=== PATIENT | female | born 1955 | race Caucasian/White ===

== ENCOUNTER 2021-05-02 03:58 | Inpatient (IN) | payer OTHER ==
[2021-05-02] VITALS (7 sets, daily range): BP systolic 99–127; BP diastolic 46–72
[~2021-05-02] VITALS: Ht 152.4 cm; Wt 91.4 kg
[2021-05-02 04:37] LABS: BE(vivo) -0.9 mmol/L (-2 to +3); HCO3 22.1 mmol/L (22.0-26.0); PCO2 31.4 mmHg (35.0-45.0); PO2 59.4 mmHg (80.0-100.0); pH 7.465 (7.360-7.450); sO2 92.5 % (92.0-98.0)
[2021-05-02 04:43] LABS: ABSOLUTE NEUTROPHILS 5.7 thou/uL (1.4-8.2); BASOPHILS 0.6 % (0.0-2.0); EOSINOPHILS 0.7 % (0.0-3.0); HEMATOCRIT 35.8 % (37.0-47.0); HEMOGLOBIN 11.9 gm/dL (12.0-15.0); LYMPHOCYTES 19.5 % (24.0-44.0); MCH 29.6 pg (26.0-34.0); MCHC 33.4 g/dL (28.0-37.0); MCV 88.7 fL (80.0-100.0); PLATELET COUNT 296 thou/uL (150-400); POLYS 69.2 % (36.0-66.0); RBC 4.03 mil/uL (4.20-5.00); RDW 15.1 % (10.5-14.5); WBC 8.3 thou/uL (4.0-11.0)
[2021-05-02 04:54] LABS: ANION GAP 10 mmol/L (7-16); BUN 11 mg/dL (7-18); CALCIUM 8.7 mg/dL (8.5-10.1); CHLORIDE 106 mmol/L (98-107); CO2 27 mmol/L (21-32); CREATININE 0.9 mg/dL (0.6-1.0); GLUCOSE 124 mg/dL (74-106); POTASSIUM 3.8 mmol/L (3.5-5.1); SODIUM 143 mmol/L (136-145)
[2021-05-02 05:05] LABS: DIRECT BILIRUBIN 0.2 mg/dL (<0.1-0.2); SGOT 21 U/L (15-37); SGPT 24 U/L (14-59); TOTAL BILIRUBIN 0.9 mg/dL (0.2-1.0); TOTAL PROTEIN 6.4 g/dL (6.4-8.2); TROPONIN-I <0.06 ng/mL (<0.06)
[2021-05-02 05:35] LABS: APTT 34.2 Seconds (24.5-32.8); INR 1.37; PROTIME 14.7 Seconds (10.5-12.1)
--- NOTE | 2021-05-02 07:31 | EKG ---
[address] [address] [place] [address] ELECTROCARDIOGRAM REPORT Name: LAM VENEGAS [id number] Admission: 05/02/21 Attend Phys: Discharge: Date of : 51 Report #: [id number] 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 subramanian : 1955 Requested By: Adina Baker Order Number: [id number] MD: David Beal Measurements Intervals [place] Rate: 53 P: 75 UT: 162 QRS: 67 QRSD: 103 T: 110 QT: 567 QTc: 533 Interpretive Statements Sinus rhythm Low voltage, precordial leads Nonspecific T abnrm, anterolateral leads Prolonged QT interval No previous ECG available for comparison Electronically Signed On 05-02-2021 7:31:42 CDT by David Beal [email or web address] <ELECTRONICALLY SIGNED> By: David Beal MD, [facility] 05/02/21 0731 0435 0435 David Beal MD, FACC /EPI
[2021-05-02 10:11] LABS: HCO3 24.6 mmol/L (22.0-26.0); PCO2 35.5 mmHg (35.0-45.0); PO2 114.8 mmHg (80.0-100.0); pH 7.458 (7.360-7.450); sO2 98.4 % (92.0-98.0)
[2021-05-02 11:34] LABS: CHOLESTEROL 162 mg/dL (<200); HDL CHOLESTEROL 45 mg/dL (>40); LDL CHOLESTEROL 91 mg/dL (<100); TC:HDL 3.6 Ratio (Not establshd); TRIGLYCERIDE 132 mg/dL (<150); VLDL 26 mg/dL (<40)
[2021-05-02] MEDS ORDERED: ENOXAPARIN100 MG/1 M (12:18)
[2021-05-02] MEDS ORDERED: FUROSEMIDE 20 M20 M1 PO (12:18)
[2021-05-02] MEDS ORDERED: TOPROL XL25 MG PO (12:18)
[2021-05-02] MEDS ORDERED: PACERONE 200 M200 M1 PO (12:19)
[2021-05-02] MEDS ORDERED: POTASSIUM CHLO10 ME1 PO (12:19)
[2021-05-02] MEDS ORDERED: TIZANIDINE HCL4 M2 PO (12:21)
[2021-05-02] MEDS ORDERED: DILTIAZEM 24HR180 M1 PO (12:22)
[2021-05-02] MEDS ORDERED: HYDROXYZINE HCL50 MG PO (12:22)
[2021-05-02] MEDS ORDERED: DULOXETINE HCL30 MG PO (12:22)
[2021-05-02] MEDS ORDERED: METOPROLOL SUCC25 M1 PO (12:23)
[2021-05-02] MEDS ORDERED: WARFARIN SODIUM1 MG PO (12:23)
[2021-05-02] MEDS ORDERED: LIPITOR 40 MG T40 M1 PO (12:24)
--- NOTE | 2021-05-02 14:45 | 2DMMODE ---
[facility] [place] [address] 2 D/M-MODE ECHOCARDIOGRAM Name: LILA VENEGAS Room #: 170-12 ADM IN M.R.#: [id number] Admission: 05/02/21 Attend Phys: Nilsa Lyle Discharge: Date of : 51 Report #: [id number] THIS REPORT FOR: cc: Isaac Sheffield Christopher A. DO Lundgren, Craig H. MD [facility] ~ APPROVED REPORT Study performed: 05/02/2021 13:44:27 EXAM: Comprehensive 2D, Doppler, and color-flow Echocardiogram Patient Location: ER Room #: 12 Status: routine BSA: 2.04 HR: 68 bpm BP: 115/52 mmHg Rhythm: NSR Other Information Study Quality: Good Indications COPD Atrial Fibrillation Dyspnea 2D Dimensions RVDd: 35.24 mm IVSd: 10.27 (7-11mm) LVOT Diam: 16.92 (18-24mm) LVDd: 55.51 mm PWd: 9.20 (7-11mm) Ascending Ao: 25.21 (22-36mm) LVDs: 35.84 (25-40mm) Left Atrium: 48.80 (27-40mm) Aortic Root: 31.35 mm IVC: 13.00 mm Volumes Left Atrial Volume (Systole) Single Plane 4CH: 79.06 mL Single Plane 2CH: 59.17 mL LA ESV Index: 37.00 mL/m2 Aortic Valve AoV Peak Maxwell.: 1.83 m/s AO Peak Gr.: 13.38 mmHg LVOT Max P.12 mmHg [facility] [address] [address] 2 D/M-MODE ECHOCARDIOGRAM Name: LILA VENEGAS Room #: 170-12 [facility]#: [id number] Admission: 05/02/21 Attend Phys: Nilsa Bowling Nov Discharge: Date of : 51 Report #: [id number] LVOT Max V: 1.13 m/s CASEY Vmax: 1.39 cm2 Mitral Valve MV Peak Gr.: 13.37 mmHg MV Mean Gr.: 4.86 mmHg E/A Ratio: 2.1 MV Decel. Time: 259.37 ms MV E Max Maxwell.: 1.65 m/s MV A Maxwell.: 0.78 m/s MV Max Maxwell.: 1.83 m/s MV Mean Maxwell.: 1.02 m/s MV VTI: 486.01 mm MV PHT: 75.22 ms MVA (PHT): 2.49 cm2 IVRT: 73.82 ms Pulmonary Valve PV Peak Maxwell.: 0.95 m/s PV Peak Gr.: 3.59 mmHg Pulmonary Vein P Vein S: 0.90 m/s P Vein A: 0.22 m/s P Vein D: 0.62 m/s P Vein A Dur.: 110.7 msec P Vein S/D Ratio: 1.45 Tricuspid Valve TR Peak Maxwell.: 2.86 m/s TR Peak Gr.: 32.62 mmHg PA Pressure: 38.00 mmHg Left Ventricle The left ventricle is normal size. There is normal LV segmental wall motion. There is normal left ventricular wall thickness. The left ventricular systolic function is normal. The left ventricular ejection fraction is within the normal range. LVEF 60%. The left ventricular diastolic function is abnormal. Right Ventricle The right ventricle is normal size. The right ventricular systolic function is normal. Atria Left atrium is dilated. Right atrium is dilated. Aortic Valve The aortic valve is sclerotic. Mild aortic regurgitation. There is no [place] [address] 2 D/M-MODE ECHOCARDIOGRAM Name: LILA VENEGAS Room #: 170-12 [facility] IN .R.#: [id number] Admission: 05/02/21 Attend Phys: Nilsa Baires Discharge: Date of : 51 Report #: [id number] Mitral Valve The mitral valve is normal in structure. Trace to mild mitral regurgitation. No evidence of mitral valve stenosis. Tricuspid Valve The tricuspid valve is normal in structure. There is mild tricuspid regurgitation. Estimated PAP 38 mmHg. There is mild pulmonary hypertension. Pulmonic Valve The pulmonary valve is normal in structure. Trace pulmonic regurgitation. Great Vessels The aortic root is normal in size. IVC is normal in size and collapses >50% with inspiration. Pericardium There is no pericardial effusion. <Conclusion> The left ventricular systolic function is normal. There is normal LV segmental wall motion. LVEF 60%. Both atria are dilated. The aortic valve is sclerotic. Mild aortic regurgitation, no stenosis. The mitral valve is normal in structure. Trace to mild mitral regurgitation. There is mild tricuspid regurgitation. Estimated pulmonary artery pressure of 38 mmHg. There is no pericardial effusion. <ELECTRONICALLY SIGNED> By: Archie Glass MD, [facility] 05/02/21 1444 1444 1444 Archie Glass MD, FACC /INF
[2021-05-02] MEDS ORDERED: CLOPIDOGREL75 MG PO (16:15)
[2021-05-02] MEDS ORDERED: PROTONIX40 M2 PO (16:17)
[2021-05-02] MEDS ORDERED: DIVALPROEX SOD250 M3 PO (16:20)
[2021-05-02] MEDS ORDERED: OMEGA 3-6-9 CO400 MG PO (16:24)
[2021-05-02] MEDS ORDERED: CALCIUM500 MG PO (16:25)
[2021-05-02] MEDS ORDERED: VITAMIN D3250 MCG PO (16:25)
[2021-05-03 00:23] VITALS: BP 123/64
[2021-05-03 03:45] LABS: ALBUMIN 2.9 g/dL (3.4-5.0); ANION GAP 8 mmol/L (7-16); BUN 20 mg/dL (7-18); CALCIUM 8.4 mg/dL (8.5-10.1); CHLORIDE 102 mmol/L (98-107); CO2 28 mmol/L (21-32); GLUCOSE 191 mg/dL (74-106); PHOSPHORUS 3.4 mg/dL (2.5-4.9); POTASSIUM 3.7 mmol/L (3.5-5.1); SODIUM 138 mmol/L (136-145); TROPONIN-I <0.06 ng/mL (<0.06)
--- NOTE | 2021-05-03 06:00 | NUR ---
Patient making slow progress towards outcome goals. Requires 10L hiflo to maintain adequate sautration. Vital signs and rhythm stable. Gait steady , up to BSC without difficulty. Slept well after Ambien.
[2021-05-03 07:32] VITALS: BP 135/62
[2021-05-03 11:59] VITALS: BP 114/55
--- NOTE | 2021-05-03 14:24 | NUR ---
INITIAL ASSESSMENT: Received consult. SW reviewed chart and spoke with nursing and attending physician. Pt was admitted from home due to dyspnea. Pt had negative COVID test on 05/02. Pt is on 10L of O2 and is on IV steroids. SW spoke with pt via phone. Introduced role of SW. Pt is alert/orientated x 4. Pt reports she normally lives at home in [place], [place]. She has been staying with her sister in [place] recently to be close to a hospital. Prior to admission, pt was indpendent with ADLs. Pt has a cane and walker to use as needed. Pt has home O2 in place through [employer]. Pt is normally on 4L continuously. Pt has used HH in the past, and would be agreeable to using HH at her sister's home in [place]. Pt's PCP is Dr. Isaac Sheffield in [place], [place]. No weekend discharge planned. SW is following to assist as needed with discharge planning.
[2021-05-03 15:33] VITALS: BP 137/81
[2021-05-03 19:48] VITALS: BP 135/80
[2021-05-04 04:06] LABS: CALCIUM 8.3 mg/dL (8.5-10.1); POTASSIUM 3.9 mmol/L (3.5-5.1)
[2021-05-04 04:29] VITALS: BP 139/72
--- NOTE | 2021-05-04 06:16 | NUR ---
ASSESSMENTS CHARTED, MEDS CHARTED GIVEN. PATIENT TRANSFERED FROM 3W AFTER COVID TESTS CAME BACK NEGATIVE. PATIENT RESTING IN BED DURING SHIFT. ALERT AND ORIENTED, SINUS RHYTHM ON TELEMETRY. ON 10 LITERS HIGH NEHEMIAH NASAL CANNULA. ACCU CHECK WITH COVERAGE NEEDED DUE TO STEROID USE. UP INDEPENDENTLY IN ROOM. FALL PRECAUTIONS IN PLACE DURING SHIFT. RECEIVING ANTIBIOTIC THERAPY.
[2021-05-04 07:59] VITALS: BP 145/79
[2021-05-04 11:48] VITALS: BP 138/85
--- NOTE | 2021-05-04 14:06 | NUR ---
PT ALERT AND ORIENTED TIMES FOUR. VSS, SR ON TELE. DENIES PAIN. PT SOA ON EXCERTION. PT UP AB FELISHA IN ROOM. PT TOLERATES MEDS AND SOME POTIONS OF HER MEALS. WILL CONTINUE TO MONITOR.
[2021-05-04 15:06] VITALS: BP 130/66
[2021-05-04 19:21] VITALS: BP 145/81
[2021-05-05 01:53] LABS: HEMATOCRIT 32.4 % (37.0-47.0); HEMOGLOBIN 10.8 gm/dL (12.0-15.0); MCH 29.6 pg (26.0-34.0); MCHC 33.2 g/dL (28.0-37.0); MCV 89.2 fL (80.0-100.0); RBC 3.63 mil/uL (4.20-5.00); RDW 15.2 % (10.5-14.5); WBC 12.1 thou/uL (4.0-11.0)
[2021-05-05 02:29] LABS: ALBUMIN 3.1 g/dL (3.4-5.0); CALCIUM 8.5 mg/dL (8.5-10.1); MAGNESIUM 2.1 mg/dL (1.8-2.4); POTASSIUM 4.4 mmol/L (3.5-5.1); TOTAL BILIRUBIN 0.7 mg/dL (0.2-1.0); TOTAL PROTEIN 6.1 g/dL (6.4-8.2)
--- NOTE | 2021-05-05 03:12 | NUR ---
ASSUMED CARE OF PT AT 2129. PT ALERT AND ORIENT TIMES THREE. FOLLOW COMMANDS. DENIES PAIN. REQUESTED AMBIEN. VSS, AFEBRILE. SR PER MONITOR. GOOD PROGRESS TOWARDS DC GOALS, WILL CONTINUE TO MONITOR.
[2021-05-05 04:05] VITALS: BP 152/81
--- NOTE | 2021-05-05 04:30 | HC ---
[facility] [address] CONSULTATION Name: LILA VENEGAS Room #: 207-P ADM IN M.R.#: [id number] Admission: 05/02/21 Attend Phys: Nilsa Lyle Discharge: Date of : 51 Report #: [id number] THIS REPORT FOR: cc: Isaac Sheffield Christopher A. DO Barry, Joseph W. MD ~ DATE OF SERVICE: 05/03/2021 INFECTIOUS DISEASE CONSULTATION ATTENDING PHYSICIAN: Dr. Lyle REASON FOR EVALUATION: Pneumonitis in the setting of acute on chronic respiratory failure. HISTORY OF PRESENT ILLNESS: Chart reviewed, patient examined. This is a 66 years old with underlying COPD, O2 requiring at 4 liters per nasal cannula at baseline, who does utilize a CPAP as well at night. She presented to the Emergency Room after having woken up, was found to have saturations in the low 80s, also was noted to have a recent cardioversion due to atrial fibrillation within the last 24-48 hours. Initial ABG showed a pH of 7.465, pCO2 of ____, pO2 of 59.4, FIO2 of 70% via BiPAP. BNP elevated at 1478. Baseline screening for coronavirus was negative as well as PCR. CT chest showed no evidence of pulmonary emboli, although did have diffuse interstitial opacities, question of atypical pneumonitis. Procalcitonin was less than 0.05. Due to concern about an infectious cause, in the absence of positive COVID test, she was empirically started on antibacterials with azithromycin and ceftriaxone. She is now requiring 10 liters per nasal cannula, although she states she feels better. She is able to speak without becoming quite dyspneic. Does have a nonproductive cough. It is not clear that she had any fevers, chills. Denies any significant GI related complaints. Otherwise, had diminished appetite in recent days. ALLERGIES: LISINOPRIL, MORPHINE. CURRENT MEDICATIONS: Include azithromycin, ceftriaxone, flecainide, diltiazem, duloxetine, metoprolol, furosemide, methylprednisolone, atorvastatin, ipratropium, albuterol inhaler, apixaban, zolpidem, p.r.n. analgesics and antiemetics. PAST MEDICAL HISTORY: As described above, severe COPD, O2 requiring; has known vasculopathy with coronary artery disease; cardiomyopathy with history of congestive heart failure; atrial fibrillation; previous stroke; obstructive sleep apnea requiring CPAP. SOCIAL HISTORY: Former smoker, quit a number of years ago. Occasional ethanol, [place] [address] CONSULTATION Name: LILA VENEGAS Room #: 207-P [facility] IN M.R.#: [id number] Admission: 05/02/21 Attend Phys: Nilsa Lyle Discharge: Date of : 51 Report #: [id number] FAMILY HISTORY: Noncontributory. REVIEW OF SYSTEMS: Otherwise, limited to the above. PHYSICAL EXAMINATION: GENERAL: She is alert, cooperative, mild to moderate distress. She is lucid, appears somewhat chronically ill, undernourished. VITAL SIGNS: Temperature 97.8, pulse 72, respirations 16, blood pressure 114/55, saturations 99%. SKIN: Warm, dry, no rashes. HEENT: Normocephalic. Extraocular muscles intact. Nasal cannula in place, 10 liters per minute. NECK: Supple. LUNGS: Overall diminished, few scattered crackles bilaterally. HEART: Irregular, do not appreciate a murmur. ABDOMEN: Soft, nontender. No peritoneal signs. GENITOURINARY: Deferred. RECTAL: Deferred. LABORATORY DATA: Blood cultures were sterile thus far. Chest x-ray from this morning, mild patchy infiltrates bilaterally. Borderline cardiomegaly. Electrolytes: Sodium 138, potassium 3.7, chloride 102, bicarbonate 28, anion gap of 8, BUN and creatinine 20 and 1.0, glucose of 191. Albumin 2.9. Echo, EF of 60%, trace mitral regurgitation, aortic regurgitation, dilated atria. TSH elevated at 4.375. Procalcitonin less than 0.05. Coronavirus testing was negative. ASSESSMENT AND PLAN: Pneumonitis in the setting of acute on chronic respiratory failure, O2 requiring chronic obstructive pulmonary disease. I think it is reasonable to continue empiric antimicrobial therapy. We will discontinue the azithromycin. We are concerned about drug interaction with the flecainide, seems less likely ____ illness, we will check mycoplasma studies. She remains quite tenuous. Continue to monitor expectantly. Wean off oxygen therapy as allowed. At this point, she seems to have responded to the initial approach. <ELECTRONICALLY SIGNED> By: Anthony Reddy MD 05/05/21 0430 1200 0013 Anthony Reddy MD /nt
--- NOTE | 2021-05-05 07:43 | NUR ---
PT PLACED ON BIPAP THIS MORNING 11/03 RATE 20 AND 65% FIO2.
[2021-05-05 07:58] VITALS: BP 141/72
[2021-05-05 08:40] LABS: BE(vivo) -1.7 mmol/L (-2 to +3); HCO3 21.6 mmol/L (22.0-26.0); PCO2 31.4 mmHg (35.0-45.0); PO2 78.9 mmHg (80.0-100.0); pH 7.455 (7.360-7.450); sO2 96.3 % (92.0-98.0)
[2021-05-05 11:25] VITALS: BP 145/79
[2021-05-05 15:54] VITALS: BP 132/71
[2021-05-05 19:57] VITALS: BP 123/52
[2021-05-06 03:00] LABS: ABSOLUTE NEUTROPHILS 7.6 thou/uL (1.4-8.2); BASOPHILS 0.1 % (0.0-2.0); HEMATOCRIT 29.2 % (37.0-47.0); HEMOGLOBIN 9.9 gm/dL (12.0-15.0); LYMPHOCYTES 5.5 % (24.0-44.0); MCH 30.1 pg (26.0-34.0); MCV 88.3 fL (80.0-100.0); MONOCYTES 5.9 % (1.0-8.0); PLATELET COUNT 239 thou/uL (150-400); POLYS 88.5 % (36.0-66.0); WBC 8.6 thou/uL (4.0-11.0)
[2021-05-06 03:12] LABS: CALCIUM 8.2 mg/dL (8.5-10.1); CREATININE 0.9 mg/dL (0.6-1.0); POTASSIUM 3.4 mmol/L (3.5-5.1)
[2021-05-06 05:41] VITALS: BP 151/63
[2021-05-06 07:52] VITALS: BP 129/90
--- NOTE | 2021-05-06 08:01 | NUR ---
PT SATS 92 TO 95% ON 12L/HFC THRU THE NOC, PLACED BACK ON BIPAP 60%FIO2 @ 0500, NO C/O PAIN THRU THE NOC, NPO EXCEPT MEDS, EXTERNAL CATHETER INTACK, VSS, REPOSITIONED NEEDED, REPORT GIVEN TO NEXT SHIFT TO CON'T PPOC.
--- NOTE | 2021-05-06 18:22 | NUR ---
PT ALERT AND ORIENTED TIMES FOUR. VSS. REMAINS ON BIPAP WITH SEVERAL TRAILS TODAY. PT DENEIS PAIN. PT TOLERATES MEDS. PT NPO AFTER MIDNIGHT FOR BRONCHOSCOPY TOMORROW. WILL CONTINUE TO MONITOR.
[2021-05-06 20:25] VITALS: BP 130/65
[2021-05-07] VITALS: BP 145/73
[2021-05-07 04:36] VITALS: BP 146/74
[2021-05-07 05:59] LABS: CALCIUM 8.1 mg/dL (8.5-10.1); CREATININE 0.9 mg/dL (0.6-1.0); POTASSIUM 3.1 mmol/L (3.5-5.1)
--- NOTE | 2021-05-07 06:30 | NUR ---
pt is alert and oreinted x4. pt wore bipap during the night lungs are diminished. npo for bronch. pt has a pure wick but voided on chux didnt catch urine. 2/2 pulses no edema noted. denies any complaints of pain noted will continue to assess and monitor per nursing
[2021-05-07 08:11] VITALS: BP 145/76
[2021-05-07 11:07] LABS: ANA INTERPRETATION Negative (Negative)
[2021-05-07 13:04] LABS: BF NUCLEATED CELLS 490 /mm3; BF RBC 31185 /mm3; CLARITY TURBID; COLOR RED; TOTAL VOLUME 28 mL
[2021-05-07 13:50] LABS: SOURCE RUL
[2021-05-07 13:52] LABS: BF MACROPHAGE 52 %; BF NEUTROPHILS 36 %
[2021-05-07 15:29] VITALS: BP 147/73
--- NOTE | 2021-05-07 16:54 | NUR ---
PATIENT PROGRESSING TOWARDS DISMISSAL GOALS. SCHEDULED BRONCH TODAY. PATIENT RETURNS VENTIMASK 50% TOLERATING WELL. DIET ORDERED FOR DINNER. VOIDING ADEQUATE. NO BM.
[2021-05-07 20:10] VITALS: BP 121/45
[2021-05-08 03:30] LABS: CALCIUM 7.8 mg/dL (8.5-10.1); POTASSIUM 3.7 mmol/L (3.5-5.1)
[2021-05-08 04:49] VITALS: BP 137/73
[2021-05-08 07:41] VITALS: BP 125/62
[2021-05-08 11:31] VITALS: BP 115/49
[2021-05-08 15:28] VITALS: BP 130/72
--- NOTE | 2021-05-08 17:11 | NUR ---
ASSUMED CARE SHIFT CHANGE. VSS. DENIES PAIN. O2 SATS WNL 5-8L O2. PT CURRENTLY ON 5L SATS 93%. SOB WITH ACTIVITY. UOP ADEQUATE, DIURESING APPROPRIATELY. PT PROGRESSING TOWARD GOALS. DENIES NEEDS CURRENTLY. CONT POC. WILL PASS ON REPORT TO TAWNY JENKINS.
[2021-05-08 19:21] VITALS: BP 144/71
[2021-05-08 23:39] VITALS: BP 143/82
[2021-05-09 05:44] VITALS: BP 136/73
--- NOTE | 2021-05-09 06:13 | NUR ---
PATIENTS CARE WAS ASSUMED AT SHIFT CHANGE. PATIENT WAS ASSESSED AND MED WERE WAS. PATIENT CONTINUES TO PROGRESS TOWARDS DISCHARGE. ROUNDS WERE MADE, VS ARE STABLE. NURSING TO CONTINUE TO MONITOR. THE BED ALARM IS ON. THE BED IS IN A LOW AND LOCKED POSITION.
[2021-05-09 07:16] VITALS: BP 139/68
[2021-05-09 11:09] VITALS: BP 112/58
--- NOTE | 2021-05-09 13:08 | PATH ---
[facility] [address] [place] [address] PATHOLOGY RPT PROCEDURE Name: LILA VENEGAS Room #: 207-P ADM IN M.R.#: [id number] Admission: 05/02/21 Date of : 51 Discharge: Report #: [id number] Path Case #: [id number] Note [facility] Accession Number: [id number] TESTS RESULT FLAG UNITS REF RANGE LAB Clinician Provided Cytology Information No. of containers..01 Other (Miscellaneous) Source: RUL BAL DIAGNOSIS: 02 RUL BAL NEGATIVE FOR MALIGNANT EPITHELIAL CELLS. NORMAL BRONCHIAL CELLS ARE PRESENT. PULMONARY MACROPHAGES PRESENT, INDICATIVE OF LOWER RESPIRATORY TRACT SAMPLING. SCANT CELLULARITY. Pathologist ICD10: 02 R06.02 Signed out by: 02 Caitie Espino MD, Pathologist NPI- [id number] Performed by: 01 Julieta Morales Screen Making Supervisor ([facility]) Gross description: 01 25ML, CLOUDY RED, 1 TP /LCS 05/08/2021 0002 Local FLAG LEGEND: L-Low Normal,H-High Normal,LL-Alert Low,HH-Alert High <-Panic Low,>-Panic High,A-Abnormal,AA-Critical Abnormal Performed at: [address] [place] [address] Garcia Caputo MD, [address] [address] Caitie Espino MD, Specimen Comment: A courtesy copy of this report has been sent to [phone], [phone] Specimen Comment: [phone], , Specimen Comment: Report sent to DR. GOEL, DR ROPER / DR FREEMAN Performed at: [address], [place], [place] [address] MD Garcia Caputo MD Phone: [phone]
[2021-05-09 15:04] VITALS: BP 131/55
--- NOTE | 2021-05-09 18:07 | NUR ---
Pt has had worsening respiratory issues the past few days with worsening cxr, on bipap, bronch and Cultures are pending. She was evaluated by therapy and they are recommending [facility] at [place]. She is staying with her sister in [place] and has home o2 in place. Ada huddleston notified of possible referral.
[2021-05-09 19:56] VITALS: BP 139/83
[2021-05-10 02:59] LABS: HEMATOCRIT 32.8 % (37.0-47.0); HEMOGLOBIN 10.9 gm/dL (12.0-15.0); MCH 29.7 pg (26.0-34.0); MCHC 33.4 g/dL (28.0-37.0); MCV 88.9 fL (80.0-100.0); RBC 3.69 mil/uL (4.20-5.00); WBC 9.7 thou/uL (4.0-11.0)
[2021-05-10 03:14] LABS: ALBUMIN 2.7 g/dL (3.4-5.0); CALCIUM 8.2 mg/dL (8.5-10.1); CREATININE 0.9 mg/dL (0.6-1.0); MAGNESIUM 2.5 mg/dL (1.8-2.4); PHOSPHORUS 3.7 mg/dL (2.5-4.9); POTASSIUM 4.2 mmol/L (3.5-5.1)
[2021-05-10 03:20] VITALS: BP 147/70
--- NOTE | 2021-05-10 05:12 | NUR ---
PT IS PLEASANT ALERT AND OREINTED X4. LUNGS CLEAR TO DIMINISHED. ON BIPAP AT 40 PERCENT. COMPLAINTS OF HEADACHE TYLENOL GIVEN AND THEN PT FELL ASLEEP AMBIEN WAS GIVEN FOR SLEEP. RESTING. ABDOMEN IS ROUND BOWEL SOUNDS HYPOACTIVE X4. ANTIBITOIC TREATMENT GIVEN. ONGOING NURSING CARE. CALL LIGHT WITHIN REACH IF NEEDS NURSING ASSISTANCE FROM STAFF.
[2021-05-10 08:28] VITALS: BP 124/56
[2021-05-10 12:05] VITALS: BP 130/60
--- NOTE | 2021-05-10 14:46 | NUR ---
rehab consult requested today in LOS. pt may be medically stable for dc on Thu or Thursday.
--- NOTE | 2021-05-10 17:58 | NUR ---
ASSESSMENT CHARTED - MEDS PER NOV - PT UP TO THE BATHROOM WITH MIN/ STBY ASSIST - GIVEN MIRLAX THIS AM FOR NO BM - PT STATED SHE DID HAVE A SMALL BM. SAPNA DIET AND FLUIDS. NO CO'S OF NASUEA. GIVEN TYLENOL FOR CO'S OF HEADACH WITH GOOD RELIEF PATIENT STATES. IV AB'S CHANGED TO PO THIS SHIFT. SEEN BY PHYS AND OCC THERAPY. NO CO'S AT THE PRESENT TIME.
[2021-05-10 19:50] VITALS: BP 155/78
[2021-05-11 03:08] LABS: HEMATOCRIT 30.7 % (37.0-47.0); HEMOGLOBIN 10.3 gm/dL (12.0-15.0); MCHC 33.7 g/dL (28.0-37.0); RBC 3.45 mil/uL (4.20-5.00); RDW 15.1 % (10.5-14.5); WBC 9.6 thou/uL (4.0-11.0)
[2021-05-11 03:23] LABS: ALBUMIN 2.4 g/dL (3.4-5.0); CALCIUM 7.9 mg/dL (8.5-10.1); PHOSPHORUS 4.6 mg/dL (2.5-4.9); POTASSIUM 4.5 mmol/L (3.5-5.1)
[2021-05-11 03:35] VITALS: BP 156/77
[2021-05-11 07:30] VITALS: BP 128/63
--- NOTE | 2021-05-11 08:16 | NUR ---
ASSUMED CARE OF PT AT 1900, PT A/OX4 ON 2LNC. PT C/O HEADACHE 02/04 MEDICATION GIVEN. PT TOLERATED BIPAP WELL THIS NOC. REMAINED IN SINUS MARGO DURING SLEEP. WILL CONTINUE TO WORK TOWARDS PT'S POC.
[2021-05-11] MEDS ORDERED: LEVOFLOXACIN500 MG PO (08:32)
[2021-05-11] MEDS ORDERED: ELIQUIS5 MG PO (08:33)
[2021-05-11] MEDS ORDERED: TAMBOCOR 100 M100 M1 PO (08:34)
[2021-05-11] MEDS ORDERED: PREDNISONE 20 M20 M1 PO (08:35)
[2021-05-11 12:10] VITALS: BP 122/59
[2021-05-11 13:02] VITALS: BP 122/59
--- NOTE | 2021-05-11 13:25 | NUR ---
FAXED HOME HEALTH REFERRAL TO [facility] IN [place], [place]. SPOKE TO TO CONFIRM THEY SERVICE [place], [place] AND [place]. SHE'LL REVIEW AND CONFIRM IF THEY CAN PROVIDE SERVICES TODAY, 05/11/21. [facility] P [phone]; FAX [phone]; M [phone]
[2021-05-11 13:59] VITALS: BP 122/59
--- NOTE | 2021-05-11 15:32 | NUR ---
PT IS AXOX4, PLEASANT; DENIES PAIN; VSS, AFEBRILE, SB ON MONITOR. PT RESTING COMFORTABLY, NEEDS STDBY ASST TO TOILET. DR FREEMAN CONSULTED, DR DRAPER CONSULTED, DR GOEL CONSULTED. PT TO D/C HOME WITH HOME HEALTH FOR PT. DISCHARGE EDUCATION CONDUCTED. PT COMMUNICATED UNDERSTANDING OF MEDS AND FOLLOW UP APPT. DISCHARGED HOME WITH [facility]IE[facility] VIA PERSONAL VEHICLE. NO CONCERNS AT THIS TIME.
--- NOTE | 2021-05-13 15:05 | HC ---
[facility] [place] [address] [place] [address] CONSULTATION Name: LILA VENEGAS Room #: 207-P [facility] IN M.R.#: [id number] Admission: 05/02/21 Attend Phys: Nilsa Bowling Valdo Discharge: 05/11/21 Date of : 51 Report #: [id number] THIS REPORT FOR: cc: Isaac Sheffield Christopher A. DO Smithson, David G. MD ~ DATE OF SERVICE: 05/10/2021 HISTORY OF PRESENT ILLNESS: The patient is a 66-year-old white female, admitted with shortness of breath. Has prior history of COPD, obstructive sleep apnea and underwent a cardioversion for atrial fibrillation 05/01/2021 at [facility]. Upon admission here to [facility] on 05/02/2021, she was noted to have acute respiratory failure, bilateral pneumonia, aspiration pneumonia, cardiomyopathy with CHF. She underwent bronchoscopy 05/07/2021. She is improving and doing much better. We are seeing her in rehabilitation medicine consultation. She has a history of the prior electrical conversion for atrial fibrillation on 05/01/2021 per chart notes. History of obesity. MEDICATIONS: Please see the full medication listing. ALLERGIES: LISINOPRIL AND MORPHINE. SOCIAL HISTORY: Lives in a mobile home with spouse near the [facility]. She has been staying with her sister here in the [place] area. She has been utilizing a cane. She has been on 4 liters nasal prong O2 at home. No stairs. Sister is retired and could be of assistance. is currently down in [place] with their dog. REVIEW OF SYSTEMS: No current complaints of chest pain, shortness of breath or abdominal discomfort. PHYSICAL EXAMINATION: GENERAL: A 66-year-old white female, in no obvious distress. She is alert, pleasant. VITAL SIGNS: Last recorded temperature 97, pulse 56, respirations 20, blood pressure 130/60. HEENT: Appeared to be benign. Nasal prong O2 is in place. She is currently on 3 liters. She appears to be a good historian. NEUROLOGIC: Functional range of motion of both upper and lower extremities, strength appears to be grade 4/5. DTRs are trace to 1. She was min assist coming to stand and ambulate 150 feet, min assist with front wheeled walker. She was able to brush her teeth and put on deodorant without any loss of balance. She ambulated around the obstacles in room without difficulty. ASSESSMENT: A 66-year-old white female with the following problem list: 1. Acute respiratory failure with bilateral pneumonia, improved. [address] [address] CONSULTATION Name: LILA VENEGAS Room #: 207-P [facility] IN M.R.#: [id number] Admission: 05/02/21 Attend Phys: Nilsa Lyle Discharge: 05/11/21 Date of : 51 Report #: [id number] 2. Aspiration pneumonia. 3. Cardiomyopathy with congestive heart failure. 4. Obstructive sleep apnea. 5. Status post prior electrical cardioversion for atrial fibrillation. 6. Obesity. PLAN: She is doing very well functionally with ambulation including up in the room, going around obstacles, ADLs. She is utilizing a walker. She is hoping to return back home tomorrow and is feeling better. She appears quite alert and appropriate. I would anticipate that she could be ready for discharge and felt to be medically cleared. I do not see that she would warrant an acute inpatient rehabilitation stay, but would anticipate she could go directly home potentially with some home health care or as indicated per the other physicians. Thank you for asking us to assist in this patient's care. <ELECTRONICALLY SIGNED> By: Sandeep Arambula MD 05/13/21 1505 1323 2343 Sandeep Arambula MD /nt
== END 2021-05-11 15:35 | disposition home health service (06) | DRG 177 ==
LOC: ER 03:58 → 3W 10:32 → EROBS 10:32 → 2N 12:28 → EROBS 12:40 → 3W 16:03 → 2N 05-03 18:01
PROVIDERS: Emergency Medicine; Internal Medicine; Internal Medicine Pulmonary Disease; Pediatrics; ADMIT Hospitalist; ATTEND Hospitalist
PROC: 5A09357 Assistance with Respiratory Ventilation, Less than 24 Consecutive Hours, Continuous Positive Airway Pressure (ICD-10-PCS; principal; 2021-05-02)
PROC: 5A0945A Assistance with Respiratory Ventilation, 24-96 Consecutive Hours, High Flow/Velocity Cannula (ICD-10-PCS; principal; 2021-05-02)
PROC: 5A09357 Assistance with Respiratory Ventilation, Less than 24 Consecutive Hours, Continuous Positive Airway Pressure (ICD-10-PCS; 2021-05-05)
PROC: 5A0935A Assistance with Respiratory Ventilation, Less than 24 Consecutive Hours, High Flow/Velocity Cannula (ICD-10-PCS; 2021-05-06)
PROC: 5A09357 Assistance with Respiratory Ventilation, Less than 24 Consecutive Hours, Continuous Positive Airway Pressure (ICD-10-PCS; 2021-05-06)
PROC: 0B9C8ZX Drainage of Right Upper Lung Lobe, Via Natural or Artificial Opening Endoscopic, Diagnostic (ICD-10-PCS; 2021-05-07)
PROC: 5A09357 Assistance with Respiratory Ventilation, Less than 24 Consecutive Hours, Continuous Positive Airway Pressure (ICD-10-PCS; 2021-05-07)
PROC: 5A0935A Assistance with Respiratory Ventilation, Less than 24 Consecutive Hours, High Flow/Velocity Cannula (ICD-10-PCS; 2021-05-07)
PROC: 5A0935A Assistance with Respiratory Ventilation, Less than 24 Consecutive Hours, High Flow/Velocity Cannula (ICD-10-PCS; 2021-05-08)
PROC: 5A09357 Assistance with Respiratory Ventilation, Less than 24 Consecutive Hours, Continuous Positive Airway Pressure (ICD-10-PCS; 2021-05-08)
PROC: 5A09357 Assistance with Respiratory Ventilation, Less than 24 Consecutive Hours, Continuous Positive Airway Pressure (ICD-10-PCS; 2021-05-09)
PROC: 5A09357 Assistance with Respiratory Ventilation, Less than 24 Consecutive Hours, Continuous Positive Airway Pressure (ICD-10-PCS; 2021-05-10)
PROC: 5A09357 Assistance with Respiratory Ventilation, Less than 24 Consecutive Hours, Continuous Positive Airway Pressure (ICD-10-PCS; 2021-05-11)
DX: J69.0 Pneumonitis due to inhalation of food and vomit (principal); E43 Unspecified severe protein-calorie malnutrition; J96.21 Acute and chronic respiratory failure with hypoxia; I42.9 Cardiomyopathy, unspecified; D68.59 Other primary thrombophilia; I50.32 Chronic diastolic (congestive) heart failure; J44.9 Chronic obstructive pulmonary disease, unspecified; G47.33 Obstructive sleep apnea (adult) (pediatric); E66.9 Obesity, unspecified; I25.10 Atherosclerotic heart disease of native coronary artery without angina pectoris; I48.91 Unspecified atrial fibrillation; E78.5 Hyperlipidemia, unspecified; G43.909 Migraine, unspecified, not intractable, without status migrainosus; G89.29 Other chronic pain; I11.0 Hypertensive heart disease with heart failure; M54.9 Dorsalgia, unspecified; F32.9 Major depressive disorder, single episode, unspecified; E11.9 Type 2 diabetes mellitus without complications; M19.90 Unspecified osteoarthritis, unspecified site; K21.9 Gastro-esophageal reflux disease without esophagitis; Z20.822 Contact with and (suspected) exposure to COVID-19; Z87.891 Personal history of nicotine dependence; Z88.6 Allergy status to analgesic agent; Z79.899 Other long term (current) drug therapy; Z79.01 Long term (current) use of anticoagulants; Z88.8 Allergy status to other drugs, medicaments and biological substances; Z68.39 Body mass index [BMI] 39.0-39.9, adult; Z86.73 Personal history of transient ischemic attack (TIA), and cerebral infarction without residual deficits; I25.2 Old myocardial infarction; Z99.81 Dependence on supplemental oxygen
CPT/HCPCS: 10081; 10879; 50010; 62110; 62900; 70005

== ENCOUNTER → 2021-05-29 | Outpatient (CLI) | payer OTHER ==
[~2021-05-29] MED LIST: CALCIUM500 MG PO; CLOPIDOGREL75 MG PO; DILTIAZEM 24HR180 M1 PO; DIVALPROEX SOD250 M3 PO; DULOXETINE HCL30 MG PO; ELIQUIS5 MG PO; ENOXAPARIN100 MG/1 M; FUROSEMIDE 20 M20 M1 PO; HYDROXYZINE HCL50 MG PO; LEVOFLOXACIN500 MG PO; LIPITOR 40 MG T40 M1 PO; METOPROLOL SUCC25 M1 PO; OMEGA 3-6-9 CO400 MG PO; PACERONE 200 M200 M1 PO; POTASSIUM CHLO10 ME1 PO; PREDNISONE 20 M20 M1 PO; PROTONIX40 M2 PO; TAMBOCOR 100 M100 M1 PO; TIZANIDINE HCL4 M2 PO; TOPROL XL25 MG PO; VITAMIN D3250 MCG PO; WARFARIN SODIUM1 MG PO
== END ==
LOC: RAD 13:23
PROVIDERS: ATTEND Internal Medicine Pulmonary Disease
DX: R06.02 Shortness of breath (principal); K44.9 Diaphragmatic hernia without obstruction or gangrene; M41.84 Other forms of scoliosis, thoracic region

== ENCOUNTER → 2021-06-12 | Outpatient (CLI) | payer OTHER | LOC: SJCVC 10:38 | PROVIDERS: ATTEND Internal Medicine | DX: R94.31 Abnormal electrocardiogram [ECG] [EKG] (principal); I44.0 Atrioventricular block, first degree; I48.0 Paroxysmal atrial fibrillation; I10 Essential (primary) hypertension; E78.5 Hyperlipidemia, unspecified; J96.11 Chronic respiratory failure with hypoxia; J44.9 Chronic obstructive pulmonary disease, unspecified; E11.9 Type 2 diabetes mellitus without complications; G47.33 Obstructive sleep apnea (adult) (pediatric); Z79.899 Other long term (current) drug therapy; Z88.8 Allergy status to other drugs, medicaments and biological substances; Z88.5 Allergy status to narcotic agent; Z87.891 Personal history of nicotine dependence ==

== ENCOUNTER → 2021-07-12 | Outpatient (CLI) | payer OTHER ==
[~2021-07-12] MED LIST changes: +BAYER CHEWABLE81 MG PO; +CALCIUM CITRAT1 EAC7 PO; +CARDIZEM CD 18180 M3 PO; +CEFDINIR300 MG PO; +CYMBALTA30 MG PO; +DEMADEX20 MG PO; +DOXYCYCLINE HYC50 MG PO; +LIPITOR40 MG PO; +MUCINEX600 MG PO; +PULMICORT0.5 MG/21 INH; +SPIRONOLACTONE25 M1 PO; +TORSEMIDE20 MG PO; +VITAMIN D3 COM1 EACH PO; +WOMEN'S DAILY1 EACH PO; +XARELTO20 MG PO
== END ==
LOC: BC 06-26 12:18 → CAT 10:27 → BC 14:13
PROVIDERS: ATTEND Family Medicine
DX: Z12.31 Encounter for screening mammogram for malignant neoplasm of breast (principal)

== ENCOUNTER 2021-07-19 01:55 | Inpatient (IN) | payer OTHER ==
[2021-07-19] VITALS (10 sets, daily range): BP systolic 133–188; BP diastolic 39–86
[~2021-07-19] VITALS: Ht 152.4 cm; Wt 81.2 kg
[~2021-07-19 01:55] MED LIST changes: -BAYER CHEWABLE81 MG PO; -CALCIUM CITRAT1 EAC7 PO; -CARDIZEM CD 18180 M3 PO; -CEFDINIR300 MG PO; -CYMBALTA30 MG PO; -DEMADEX20 MG PO; -DOXYCYCLINE HYC50 MG PO; -LIPITOR40 MG PO; -MUCINEX600 MG PO; -PULMICORT0.5 MG/21 INH; -SPIRONOLACTONE25 M1 PO; -TORSEMIDE20 MG PO; -VITAMIN D3 COM1 EACH PO; -WOMEN'S DAILY1 EACH PO; -XARELTO20 MG PO
[2021-07-19 02:41] LABS: HEMOGLOBIN 6.8 gm/dL (12.0-15.0); RDW 18.4 % (10.5-14.5); WBC 11.6 thou/uL (4.0-11.0)
[2021-07-19 02:43] LABS: ABSOLUTE NEUTROPHILS 9.6 thou/uL (1.4-8.2); BASOPHILS 0.6 % (0.0-2.0); EOSINOPHILS 0.3 % (0.0-3.0); HEMATOCRIT 22.3 % (37.0-47.0); LYMPHOCYTES 11.2 % (24.0-44.0); MCH 22.5 pg (26.0-34.0); MCHC 30.3 g/dL (28.0-37.0); MCV 74.2 fL (80.0-100.0); MONOCYTES 5.2 % (1.0-8.0); PLATELET COUNT 394 thou/uL (150-400); POLYS 82.7 % (36.0-66.0); RBC 3.01 mil/uL (4.20-5.00)
[2021-07-19] MEDS ORDERED: TORSEMIDE20 MG PO (02:45)
[2021-07-19] MEDS ORDERED: XARELTO20 MG PO (02:46)
[2021-07-19] MEDS ORDERED: WOMEN'S DAILY1 EACH PO (02:47)
[2021-07-19] MEDS ORDERED: VITAMIN D3 COM1 EACH PO (02:47)
[2021-07-19] MEDS ORDERED: CALCIUM CITRAT1 EAC7 PO (02:48)
[2021-07-19 03:01] LABS: CALCIUM 8.7 mg/dL (8.5-10.1); CREATININE 1.2 mg/dL (0.6-1.0)
[2021-07-19 03:21] LABS: POTASSIUM 2.7 mmol/L (3.5-5.1)
--- NOTE | 2021-07-19 07:22 | EKG ---
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 : 1955 Requested By: Max Laughlin Order Number: [id number] MD: David Beal Measurements Intervals [place] Rate: 78 P: 0 ND: 132 QRS: 49 QRSD: 154 T: 72 QT: 563 QTc: 642 Interpretive Statements Sinus rhythm Left bundle branch block Compared to ECG 05/02/2021 04:35:53 Left bundle-branch block now present Prolonged QT interval no longer present Electronically Signed On 07-19-2021 7:22:34 CDT by David Beal [email or web address] <ELECTRONICALLY SIGNED> By: David Beal MD, [facility] 07/19/21721 5 5 David Beal MD, FAC /EPI
--- NOTE | 2021-07-19 09:55 | EKG ---
[address] [address] ELECTROCARDIOGRAM REPORT Name: FEMI VENEGASMUNIR Fleming Room #: 439- ADM IN M.R.#: [id number] Admission: 07/19/21 Attend Phys: Kalin Lorenzo MD Discharge: Date of : 51 Report #: [id number] [facility] Test Date: 2021-07-19 Test Time: 09:15:52 Pat Name: LILA VENEGAS Department: Room: 439 Gender: F Audio Visual Production Specialist: JAY : 1955 Requested By: Toney Frank Order Number: [id number] MD: David Beal Measurements Intervals [place] Rate: 79 P: 140 [place]: 172 QRS: 59 QRSD: 170 T: -61 QT: 469 QTc: 538 Interpretive Statements Sinus Probable left atrial enlargement LBBB Compared to ECG 07/19/2021 03:16:20 LBBB, no change Electronically Signed On 07-19-2021 9:55:42 CDT by David Beal [email or web address] <ELECTRONICALLY SIGNED> By: David Beal MD, [facility] [id number] 4 4 David Beal MD, FAC /EPI
[2021-07-19 10:29] LABS: BE(vivo) -5.2 mmol/L (-2 to +3); PCO2 27.4 mmHg (35.0-45.0); PO2 57.6 mmHg (80.0-100.0); pH 7.435 (7.360-7.450); sO2 91.4 % (92.0-98.0)
--- NOTE | 2021-07-19 11:10 | NUR ---
Pt. became SOA & O2 sats dropped-LAW OFFICE MANAGER activated-see flowsheet
--- NOTE | 2021-07-19 15:02 | 2DMMODE ---
[facility] [place] [address] 2 D/M-MODE ECHOCARDIOGRAM Name: LILA VENEGAS Room #: 352-P ADM IN M.R.#: [id number] Admission: 07/19/21 Attend Phys: Toney Frank MD Discharge: Date of : 51 Report #: [id number] THIS REPORT FOR: cc: Isaac Sheffield Christopher A. DO Santiago, Patrick MD [facility] ~ APPROVED REPORT Study performed: 07/19/2021 12:25:23 EXAM: Limited 2D, Doppler, and color-flow Echocardiogram Patient Location: Bedside Room #: [facility] Status: routine BSA: 1.79 HR: 80 bpm BP: 178/75 mmHg Rhythm: LBBB Other Information Study Quality: Good Indications Limited echo for abnormal EKG, anemia, hypokalemia. Hx: MD's, Afib/CV, COPD, CVA. (Complete echo done 01/30/21). 2D Dimensions IVSd: 9.57 (7-11mm) LVDd: 58.05 mm PWd: 9.16 (7-11mm) LVDs: 45.65 (25-40mm) Left Atrium: 51.03 (27-40mm) Aortic Valve AoV Peak Maxwell.: 1.67 m/s AO Peak Gr.: 11.14 mmHg Tricuspid Valve TR Peak Maxwell.: 3.84 m/s RAP Estimate: 15.00 mmHg TR Peak Gr.: 59.00 mmHg PA Pressure: 74.00 mmHg Left Ventricle Left ventricle is at the upper limits of normal. Regional wall motion [facility] [address] [place] [address] 2 D/M-MODE ECHOCARDIOGRAM Name: LILA VENEGAS Room #: 352-P [facility].#: [id number] Admission: 07/19/21 Attend Phys: Diony Don Discharge: Date of : 51 Report #: [id number] abnormalities are noted. There is normal left ventricular wall thickness. Left ventricular systolic function is mild to moderately decreased. LVEF is 40-45%. Right Ventricle The right ventricle is normal size. The right ventricular systolic function is normal. Atria Left atrium is moderately dilated. Right atrium is mildly dilated. Aortic Valve The aortic valve is normal in structure. Mild aortic regurgitation. There is no aortic valvular stenosis. Mitral Valve The mitral valve is normal in structure. Moderate mitral regurgitation. Tricuspid Valve The tricuspid valve is normal in structure. Moderate tricuspid regurgitation. Estiamted PAP is 70-75mmHg. Severe pulmonary hypertension. Great Vessels The aortic root is normal in size. IVC is dilated and collapses <50% with inspiration. Pericardium There is no pericardial effusion. Bilateral pleural effusions noted. <Conclusion> Left ventricle size in the upper limits of normal Normal wall thickness Ejection fraction 40-45% with moderate anteroseptal hypokinesis Normal right ventricle size/function Left atrium moderately dilated right atrium mildly dilated Mild aortic valve insufficiency Mildmoderate mitral valve insufficiency/posteriorly directed Moderate tricuspid valve insufficiency Severe pulmonary hypertension PA pressure systolic estimated 70 mmHg [facility] [address] [place] [address] 2 D/M-MODE ECHOCARDIOGRAM Name: LILA VENEGAS Room #: 352-P [facility] IN [facility]#: [id number] Admission: 07/19/21 Attend Phys: Diony Don Discharge: Date of : 51 Report #: [id number] No pericardial effusion Normal aortic root size Pleural effusion noted <ELECTRONICALLY SIGNED> By: David Beal MD, FACC 07/19/21 1502 01 01 David Beal MD, FACC /INF
[2021-07-19 15:14] LABS: HEMATOCRIT 26.8 % (37.0-47.0); HEMOGLOBIN 8.3 gm/dL (12.0-15.0)
[2021-07-19 15:22] LABS: CALCIUM 8.8 mg/dL (8.5-10.1); MAGNESIUM 3.2 mg/dL (1.8-2.4)
[2021-07-19 15:22] LABS: % SATURATION 8 % (20-39); IRON 37 ug/dL (50-170); TIBC 454 ug/dL (250-450)
[2021-07-19 15:24] LABS: POTASSIUM 4.1 mmol/L (3.5-5.1)
[2021-07-19 16:03] LABS: FERRITIN 101 ng/mL (8-252)
--- NOTE | 2021-07-19 17:27 | NUR ---
PT WAS TRANSFER FROM 4S DUE TO SOB AND INCREASE NEED FPR OXYGEN. ALERT AND ORIENTED X4. CURRENTLY ON AN OPTIFLOW, 40L, 45%. SOB WITH EXERTION. COVID TEST CAME BACK NEGATIVE, NEED CLEARANCE FROM ID NURSE. UP TO BSC INDEPEDENTLY. GI ROUNDING AND GAVE ORDERS FOR PT TO BE ON A DIET. DENIES ANY NEEDS CARLA. WILL CONTINUE TO MONITOR
--- NOTE | 2021-07-19 19:13 | NUR ---
[age] YEAR OLD FEMALE ADMITED TO [address] [place] [address] 439 AT SHIFT CHANGE THIS MORNING. PT WAS BROUGHT INTO THE ER PER EMS DUE TO INCREASED SOB. PT ARRIVED TO UNIT ON 2L PER NC. ALERT AND ORIENTED TIMES FOR. VSS. SR/BBB ON TELE. DENIES PAIN. PT BEGAN TO C/O NOT BEING ABLE TO BREATH AFTER ADMISSION ASSSESSMENT. O2 TURNED UP TO 8L RT CALLED BREATHING TX GIVEN STILL NOT BETTER. RAT TEAM CALLED. PT TRANSFERRED TO [facility]. REPORT GIVEN AT BEDSIDE.
--- NOTE | 2021-07-20 02:00 | NUR ---
CONTINUES ON OPTIFLO OXYGEN. SHE IS COOPERATIVE WITH CALLING FOR ASSIST OUT OF BED TO BSC. AWARE OF HER NEED FOR ASSIST. MILD EADACHE DID NOT WANT ANY MEDICATION FOR IT, TONIGHT. NO DISCHARGE CONCERNS VOICED.
[2021-07-20 04:15] VITALS: BP 133/58
[2021-07-20 05:41] LABS: ABSOLUTE NEUTROPHILS 6.5 thou/uL (1.4-8.2); BASOPHILS 0.6 % (0.0-2.0); EOSINOPHILS 0.2 % (0.0-3.0); HEMATOCRIT 23.8 % (37.0-47.0); HEMOGLOBIN 7.5 gm/dL (12.0-15.0); LYMPHOCYTES 12.3 % (24.0-44.0); MCH 23.9 pg (26.0-34.0); MCHC 31.5 g/dL (28.0-37.0); MONOCYTES 8.4 % (1.0-8.0); PLATELET COUNT 336 thou/uL (150-400); POLYS 78.5 % (36.0-66.0); RBC 3.13 mil/uL (4.20-5.00); RDW 19.7 % (10.5-14.5); WBC 8.3 thou/uL (4.0-11.0)
[2021-07-20 05:47] LABS: CALCIUM 8.7 mg/dL (8.5-10.1); CREATININE 0.9 mg/dL (0.6-1.0); MAGNESIUM 2.2 mg/dL (1.8-2.4); POTASSIUM 3.5 mmol/L (3.5-5.1)
[2021-07-20 07:14] VITALS: BP 137/61
[2021-07-20 11:06] VITALS: BP 150/64
[2021-07-20 12:52] LABS: ANISOCYTOSIS 2+; HYPOCHROMASIA 1+; MICROCYTES 1+
[2021-07-20 15:13] VITALS: BP 143/75
--- NOTE | 2021-07-20 19:16 | NUR ---
ASSUMED PATIENT CARE AT 0700. A/0 X4. NO BLEEDING NOTED. TOLERATED ON 30L/35% OPTIFLOW. SLOWLY TOWARDS POC GOALS.
[2021-07-20 19:53] VITALS: BP 145/73
[2021-07-21 03:46] VITALS: BP 157/70
--- NOTE | 2021-07-21 04:55 | NUR ---
Patient making progress towards outcome goals. Oxygen down to 20L/35% per optiflow sats upper 90's. Short of breath with activity but less winded. Diuresing from lasix. Up to BSC independently without difficulty. Vital signs and rhythm stable.
--- NOTE | 2021-07-21 05:03 | HC ---
[facility] [place] [address] CONSULTATION Name: LILA VENEGAS Room #: 352-P ADM IN M.R.#: [id number] Admission: 07/19/21 Attend Phys: Toney Frank MD Discharge: Date of : 51 Report #: [id number] THIS REPORT FOR: cc: Isaac Sheffield Christopher A. DO Barry, Joseph W. MD ~ DATE OF SERVICE: 07/20/2021 Infectious Disease Consultation ATTENDING PHYSICIAN: Dr. Frank. REASON FOR EVALUATION: Pneumonitis, complicated by respiratory failure and probable ARDS. HISTORY OF PRESENT SUBJECTIVE: Chart reviewed. The patient examined. This is a 66-year-old woman known to our service. She was seen in 04/2021 for similar type complaint, diagnosis of pneumonitis and acute on chronic respiratory failure. It is known she has underlying COPD requiring 4 liters per nasal cannula at baseline, does utilize CPAP at night. She spent roughly 10 days in the hospital. She had progressive dyspnea at home, presented to the Emergency Room. Initial studies noted atrial fibrillation. Coronavirus testing was negative. Chest x-ray did show bilateral diffuse interstitial and scattered opacities. She subsequently has had a CT of the chest, again confirmed the diffuse ground-glass infiltrates. She has subsequently had 2 negative PCR tests for coronavirus. She has required increased supplemental oxygen at 35 liters per minute, FiO2 of 40%. She was empirically started on therapy with ceftriaxone and doxycycline. She notes she feels better today. She is able to lie flat. Denies significant GI related complaints. ALLERGIES: LISINOPRIL, WHICH CAUSES A COUGH. MORPHINE. CURRENT MEDICATIONS: Include flecainide, dexamethasone, pantoprazole, furosemide, guaifenesin, atorvastatin, duloxetine, doxycycline, ceftriaxone, budesonide, diltiazem CD, ipratropium/albuterol inhaler, p.r.n. ondansetron. PAST MEDICAL HISTORY: As described above. Does have diabetes mellitus, noted vasculopathy, coronary artery disease, previous stroke, obstructive sleep apnea, hyperlipidemia, atrial fibrillation, history of depression. SOCIAL HISTORY: Former smoker. No current illicit drug use. Past ethanol. FAMILY HISTORY: Noncontributory. REVIEW OF SYSTEMS: As noted above. [address] [address] CONSULTATION Name: LILA VENEGAS Room #: 352-P [facility] IN ..#: [id number] Admission: 07/19/21 Attend Phys: Toney Frank MD Discharge: Date of : 51 Report #: [id number] PHYSICAL EXAMINATION: GENERAL: She appears chronically ill and undernourished. She is lucid. She is able to complete a sentence at this point. VITAL SIGNS: Temperature 99.9, pulse 74, respirations 16, blood pressure 137/61. SKIN: Warm, dry, no rashes. HEENT: Normocephalic. Extraocular muscles intact. Optiflow in place. NECK: Supple. LUNGS: Bilateral scattered coarse breath sounds. HEART: Irregular. I do not appreciate a murmur. ABDOMEN: Slightly distended, somewhat firm, nontender. EXTREMITIES: No cyanosis. GENITOURINARY AND RECTAL: Deferred. LABORATORY DATA: CBC: White count 8.3, H and H 7.5 and 23.8, platelets of 336. Electrolytes: Sodium 139, potassium 3.5, chloride 101, bicarbonate is 25, anion gap of 13, BUN and creatinine 12 and 0.9. Coronavirus testing with PCR x2 is negative as well as the . Echo, EF mild to moderately decreased to 40-45%, mild aortic valvular insufficiency, mild to moderate mitral valve insufficiency, moderate tricuspid valve insufficiency, severe pulmonary hypertension, PA pressure estimated to 70. CT of the chest, diffuse bilateral irregular ground glass opacities, question of development of small bilateral pleural effusions, no pneumothorax. No CT evidence of PE. ASSESSMENT AND PLAN: Pneumonitis. The patient is quite compromised. Chronic respiratory failure with exacerbation. It is certainly difficult to ascertain this is not a typical lobar pneumonia, would favor some sort of viral or atypical, should have reasonable coverage with doxycycline. We will continue current therapy. She notes she is somewhat improved. I would be concerned about possible noninfectious causes as well. She is on corticosteroids, may ultimately need some sort of a procedure, bronchoscopy to help clarify. We will do a viral respiratory panel if available. Incentive spirometry. Continue supportive care. <ELECTRONICALLY SIGNED> By: Anthony Reddy MD 07/21/21 0503 [id number] Anthony Reddy MD /nt
[2021-07-21 07:20] VITALS: BP 153/72
[2021-07-21 11:31] VITALS: BP 170/83
[2021-07-21 15:50] VITALS: BP 147/80
--- NOTE | 2021-07-21 17:06 | NUR ---
TOLERATED ON RA. PROGRESSING TOWARDS POC GOALS.
--- NOTE | 2021-07-21 18:17 | NUR ---
ASSUMED PATIENT CARE AT 0700. A/O X4, TITRATED TO 2L/NC. SLOWLY TOWARDS POC GOALS.
[2021-07-21 19:28] VITALS: BP 155/83
[2021-07-22 04:46] VITALS: BP 140/68
--- NOTE | 2021-07-22 05:28 | NUR ---
Patient progressing well towards outcome goals. Oxygenation optimal on 2L/NC. Feeling stronger. Up to BSC without difficulty. Diuresing from lasix. Vital signs and rhythm stable.
[2021-07-22 07:23] VITALS: BP 152/57
[2021-07-22 08:51] LABS: HEMATOCRIT 25.1 % (37.0-47.0); MCH 23.7 pg (26.0-34.0); MCHC 30.1 g/dL (28.0-37.0); MCV 78.6 fL (80.0-100.0); RBC 3.2 mil/uL (4.20-5.00); RDW 20.1 % (10.5-14.5); WBC 12.2 thou/uL (4.0-11.0)
[2021-07-22 08:53] LABS: HEMOGLOBIN 7.6 gm/dL (12.0-15.0)
[2021-07-22 08:59] LABS: CALCIUM 8.9 mg/dL (8.5-10.1); CREATININE 1.3 mg/dL (0.6-1.0)
[2021-07-22 09:03] LABS: POTASSIUM 2.6 mmol/L (3.5-5.1)
[2021-07-22 11:14] VITALS: BP 142/59
[2021-07-22 15:09] VITALS: BP 143/68
--- NOTE | 2021-07-22 15:49 | NUR ---
INITIAL ASSESSMENT: Received consult. JOSÉ LUIS reviewed chart and spoke with nursing and attending physician. Pt was admitted from home due to dyspnea/anemia. Pt had negative COVID test upon admission. Pt was transferred to from . Pt is on 2L of O2 and is on IV abx. PT/OT evals ordered. Discharge home is anticipated in 1-2 days. JOSÉ LUIS met with pt at bedside. Introduced role of SW. Pt is alert/orientated x 4. Pt reports she normally lives at home in [place], [place]. She has been staying with her sister in [place] recently to be close to a hospital. Prior to admission, pt was indpendent with ADLs. Pt has a cane and walker to use as needed. Pt has home O2 in place through [employer]. Pt is normally on 4L continuously. Pt has used [facility] in the past, and would be agreeable with HH again at her sister's home in [place]. Pt's PCP is Dr. Isaac Sheffield in [place], [place]. Confirmed pt's sister's home address in [place]: [address] [place] [address]. SW faxed HH referral to [facility] and notified HH liaison. JOSÉ LUIS is following to assist as needed with discharge planning.
--- NOTE | 2021-07-22 17:56 | NUR ---
ASSUMED PATIENT CARE AT 0700. A/O X4. TOLERATED ON 2L/NC. PROGRESSING TOWARDS POC GOALS.
[2021-07-22 18:57] VITALS: BP 159/64
[2021-07-23 03:27] LABS: CALCIUM 9.2 mg/dL (8.5-10.1); CREATININE 1.1 mg/dL (0.6-1.0); MAGNESIUM 1.9 mg/dL (1.8-2.4); POTASSIUM 4.4 mmol/L (3.5-5.1)
[2021-07-23 04:46] VITALS: BP 178/93
--- NOTE | 2021-07-23 04:52 | NUR ---
PROGRESS PT A/O X4. UP AD FELISHA TO BSC. VOIDING QS. DENIES PAIN. ON 3 LITERS O2 VIA NC SATS IN MID 90'S. 2 LITERS IS BASELINE FOR HOME O2. LUNGS DIMINISHED AND COARSE PT DENIES COUGHING UP SPUTUM. DENIES PAIN BUT REPORTED FATIGUE EARLY IN SHIFT. CARES COMPLETED EARLY AND PT ALLOWED TO SLEEP UNINTERRUPTED FOR ABOUT 5 HOURS. VSS CONTINUE POC.
[2021-07-23 07:22] VITALS: BP 134/47
[2021-07-23 11:16] VITALS: BP 163/69
[2021-07-23 15:11] VITALS: BP 146/75
--- NOTE | 2021-07-23 15:33 | NUR ---
SW reviewed chart and spoke with nursing and attending physician. Pt is progressing towards goals for discharge. Discharge home with HH is anticipated for tomorrow. Pt has home O2 in place. SW confirmed with [facility] liaison that they are able to accept pt on service when discharged. Plan is for pt to discharge to her sister's home in [place] with HH. JOSÉ LUIS is following to assist as needed with discharge planning.
--- NOTE | 2021-07-23 16:28 | NUR ---
RN ASSUMED PT'S CARE AT 0700AM, PT IS A&OX4, PT IS ON O2 2L/MIN/NC AT RESTING , O2 3L/MIN/NC AT ACTIVITIES, PT 'S VS AND O2 SAT ARE STABLE, PT IS CONTINUING IV ABX, PT DENIES PAIN AND SOB BY THIS TIME, PT CAN GET UP TO BSC WITH ASSIST.
[2021-07-23 19:00] VITALS: BP 154/82
[2021-07-23 21:06] LABS: INFLUENZA VIRUS A AB QUANT 1:16 (Neg:<1:8); INFLUENZA VIRUS B AB QUANT Negative (Neg:<1:8)
[2021-07-24 02:17] VITALS: BP 144/46
--- NOTE | 2021-07-24 05:33 | NUR ---
PROGRESS PT A/O X4, UP AD FELISHA TO BSC. DENIES PAIN JUST REPORT SLEEPINESS. VSS. LUNGS DIMINISHED ON ROOM AIR AND 2 LITERS WITH ACTIVITY. TELEMETRY INTACT READING SR WITH RATES IN 70'S. PLAN IS TO DC HOME WHEN MEDICALLY STABLE.
[2021-07-24 06:09] LABS: HEMOGLOBIN 7.6 gm/dL (12.0-15.0); WBC 12.4 thou/uL (4.0-11.0)
[2021-07-24 06:10] LABS: HEMATOCRIT 24.7 % (37.0-47.0); MCH 24.5 pg (26.0-34.0); MCHC 30.6 g/dL (28.0-37.0); MCV 80.2 fL (80.0-100.0); RBC 3.08 mil/uL (4.20-5.00); RDW 20.7 % (10.5-14.5)
[2021-07-24 06:25] LABS: CALCIUM 8.9 mg/dL (8.5-10.1); CREATININE 1.1 mg/dL (0.6-1.0); POTASSIUM 3.4 mmol/L (3.5-5.1)
[2021-07-24 07:23] VITALS: BP 136/53
[2021-07-24] MEDS ORDERED: SPIRONOLACTONE25 M1 PO (11:12)
[2021-07-24] MEDS ORDERED: DOXYCYCLINE HYC50 MG PO (11:12)
[2021-07-24] MEDS ORDERED: LIPITOR40 MG PO (11:12)
[2021-07-24] MEDS ORDERED: TAMBOCOR 100 M100 M1 PO (11:12)
[2021-07-24] MEDS ORDERED: DEMADEX20 MG PO (11:12)
[2021-07-24] MEDS ORDERED: PULMICORT0.5 MG/21 INH (11:12)
[2021-07-24] MEDS ORDERED: BAYER CHEWABLE81 MG PO (11:12)
[2021-07-24] MEDS ORDERED: CEFDINIR300 MG PO (11:12)
[2021-07-24] MEDS ORDERED: CARDIZEM CD 18180 M3 PO (11:12)
[2021-07-24] MEDS ORDERED: MUCINEX600 MG PO (11:12)
[2021-07-24] MEDS ORDERED: CYMBALTA30 MG PO (11:12)
[2021-07-24 11:22] VITALS: BP 162/71
[2021-07-24 13:38] VITALS: BP 162/71
--- NOTE | 2021-07-24 14:27 | NUR ---
DISCHARGE NOTE: SW reviewed chart and spoke with nursing and attending physician. Pt is medically stable for discharge home today with services. SW faxed discharge ppwk to [facility] and left voice message for intake to notify of pt's discharge. Received fax confirmation that d/c ppwk was received. SW met with pt at bedside to discuss discharge plan. Pt is aware and in agreement with plan. Pt's niece will provide transportation home. Contact info for HH placed in pt's discharge summary. Pt has home O2 in place. No additional SW needs identified at this time. SW is available to assist should needs arise.
--- NOTE | 2021-07-24 16:03 | NUR ---
assumed care of pt at 0700. pt aox4 no acute distress. complains of migraine - relieved with toradol. iron infusions finished. hypertensive - physician aware. stable to d/c to home with home health. no events on telemetry.
[2021-07-25] MEDS ORDERED: PULMICORT0.5 MG/21 INH (14:19)
== END 2021-07-24 16:16 | disposition home health service (06) | DRG 811 ==
LOC: ER 01:55 → 4S 05:26 → 3W 05:26 → EROBS 05:26 → 4S 07:34 → 3W 07:46
PROVIDERS: Internal Medicine; Nurse Practitioner; Nurse Practitioner Adult Health; Specialist; Student in an Organized Health Care Education/Training Program; ADMIT Hospitalist; ATTEND Hospitalist
DX: D50.0 Iron deficiency anemia secondary to blood loss (chronic) (principal); J18.9 Pneumonia, unspecified organism; J96.21 Acute and chronic respiratory failure with hypoxia; I50.43 Acute on chronic combined systolic (congestive) and diastolic (congestive) heart failure; N17.0 Acute kidney failure with tubular necrosis; J44.1 Chronic obstructive pulmonary disease with (acute) exacerbation; D68.59 Other primary thrombophilia; J44.0 Chronic obstructive pulmonary disease with (acute) lower respiratory infection; I11.0 Hypertensive heart disease with heart failure; D64.9 Anemia, unspecified; E87.6 Hypokalemia; M19.90 Unspecified osteoarthritis, unspecified site; I25.10 Atherosclerotic heart disease of native coronary artery without angina pectoris; G89.29 Other chronic pain; M54.9 Dorsalgia, unspecified; Z96.651 Presence of right artificial knee joint; E78.5 Hyperlipidemia, unspecified; K21.9 Gastro-esophageal reflux disease without esophagitis; E11.9 Type 2 diabetes mellitus without complications; F32.9 Major depressive disorder, single episode, unspecified; G47.33 Obstructive sleep apnea (adult) (pediatric); E83.42 Hypomagnesemia; I27.21 Secondary pulmonary arterial hypertension; E78.00 Pure hypercholesterolemia, unspecified; I48.0 Paroxysmal atrial fibrillation; I44.7 Left bundle-branch block, unspecified; Z20.822 Contact with and (suspected) exposure to COVID-19; R53.81 Other malaise; Z79.01 Long term (current) use of anticoagulants; Z98.42 Cataract extraction status, left eye; Z98.41 Cataract extraction status, right eye; I69.320 Aphasia following cerebral infarction; I25.2 Old myocardial infarction; Z88.6 Allergy status to analgesic agent; Z88.8 Allergy status to other drugs, medicaments and biological substances; Z87.891 Personal history of nicotine dependence; Z23 Encounter for immunization
CPT/HCPCS: 10879

== ENCOUNTER → 2021-08-06 | Outpatient (CLI) | payer OTHER ==
[~2021-08-06] MED LIST changes: +BAYER CHEWABLE81 MG PO; +CALCIUM CITRAT1 EAC7 PO; +CARDIZEM CD 18180 M3 PO; +CEFDINIR300 MG PO; +CYMBALTA30 MG PO; +DEMADEX20 MG PO; +DOXYCYCLINE HYC50 MG PO; +LIPITOR40 MG PO; +MUCINEX600 MG PO; +PULMICORT0.5 MG/21 INH; +SPIRONOLACTONE25 M1 PO; +TORSEMIDE20 MG PO; +VITAMIN D3 COM1 EACH PO; +WOMEN'S DAILY1 EACH PO; +XARELTO20 MG PO
== END ==
LOC: LAB 14:33
PROVIDERS: ATTEND Internal Medicine
DX: D50.8 Other iron deficiency anemias (principal)

== ENCOUNTER → 2021-08-27 | Outpatient (CLI) | payer OTHER | LOC: SJCVC 12:58 | PROVIDERS: ATTEND Internal Medicine | DX: I48.0 Paroxysmal atrial fibrillation (principal); J96.11 Chronic respiratory failure with hypoxia; I10 Essential (primary) hypertension; E78.5 Hyperlipidemia, unspecified; J44.9 Chronic obstructive pulmonary disease, unspecified; J45.909 Unspecified asthma, uncomplicated; E11.9 Type 2 diabetes mellitus without complications; G47.33 Obstructive sleep apnea (adult) (pediatric); K44.9 Diaphragmatic hernia without obstruction or gangrene; Z79.899 Other long term (current) drug therapy; Z82.49 Family history of ischemic heart disease and other diseases of the circulatory system; Z88.5 Allergy status to narcotic agent; Z88.8 Allergy status to other drugs, medicaments and biological substances ==

== ENCOUNTER → 2021-09-30 | Outpatient (CLI) | payer OTHER ==
[2021-09-30 10:57] LABS: ABSOLUTE NEUTROPHILS 3.7 thou/uL (1.4-8.2); BASOPHILS 0.7 % (0.0-2.0); EOSINOPHILS 1.5 % (0.0-3.0); HEMATOCRIT 40.2 % (37.0-47.0); HEMOGLOBIN 13.6 gm/dL (12.0-15.0); LYMPHOCYTES 18.7 % (24.0-44.0); MCH 30.5 pg (26.0-34.0); MCHC 33.9 g/dL (28.0-37.0); MONOCYTES 7.7 % (1.0-8.0); PLATELET COUNT 210 thou/uL (150-400); POLYS 71.4 % (36.0-66.0); RBC 4.46 mil/uL (4.20-5.00); WBC 5.2 thou/uL (4.0-11.0)
[2021-09-30 11:08] LABS: % SATURATION 33 % (20-39); IRON 96 ug/dL (50-170); TIBC 289 ug/dL (250-450)
[2021-09-30 11:31] LABS: ALBUMIN 3.9 g/dL (3.4-5.0); CALCIUM 9.7 mg/dL (8.5-10.1); CREATININE 1.1 mg/dL (0.6-1.0); POTASSIUM 3.8 mmol/L (3.5-5.1); TOTAL BILIRUBIN 0.5 mg/dL (0.2-1.0); TOTAL PROTEIN 7.1 g/dL (6.4-8.2)
[2021-09-30 15:05] LABS: ANISOCYTOSIS 2+; MICROCYTES 1+
== END ==
LOC: LAB 10:15
PROVIDERS: ATTEND Internal Medicine
DX: D50.8 Other iron deficiency anemias (principal)